=== PATIENT | female | born 1990 | race Caucasian/White ===

== ENCOUNTER 2020-10-20 17:55 | Emergency (ER) | payer OTHER ==
[~2020-10-20] VITALS: Ht 170.2 cm; Wt 127.0 kg
[~2020-10-20 17:55] MED LIST: ACETAMINOPHEN; AMITRIPTYLINE H25 M2 PO; IRON; LORTAB 5 MG/5001 TAB PO; PRISTIQ; ZYRTEC
[2020-10-20] MEDS ORDERED: IRON18 M1 PO (18:18)
[2020-10-20] MEDS ORDERED: MELATONIN5 MG SUBLING (18:18)
[2020-10-20] MEDS ORDERED: HYDROCHLOROTHIA50 MG PO (18:18)
[2020-10-20] MEDS ORDERED: PROTONIX40 M3 PO (18:18)
[2020-10-20] MEDS ORDERED: MEDROXYPROGESTE10 MG PO (18:19)
[2020-10-20 18:27] LABS: ABSOLUTE BASOPHILS 0.1 thou/uL (0.0-0.2); ABSOLUTE EOSINOPHILS 0.2 thou/uL (0.0-0.7); ABSOLUTE LYMPHOCYTES 3.7 thou/uL (0.8-5.3); ABSOLUTE MONOCYTES 1.1 thou/uL (0.0-1.2); ABSOLUTE NEUTROPHILS 7.2 thou/uL (1.6-8.1); EOSINOPHILS 1.4 %; HEMATOCRIT 44.4 % (37.0-47.0); HEMOGLOBIN 14.6 gm/dL (12.0-15.0); LYMPHOCYTES 30.2 %; MCH 28.9 pg (26.0-34.0); MCHC 32.9 g/dL (28.0-37.0); MCV 87.8 fL (80.0-100.0); MONOCYTES 8.6 %; MPV 7.6 fl. (7.2-11.1); NUCLEATED RBCS 0 /100WBC; PLATELET COUNT* 505 thou/uL (150-400); POLYS 58.8 %; RBC 5.05 mil/uL (4.20-5.00); RDW-CV 14.3 % (10.5-14.5); WBC 12.3 thou/uL (4.0-11.0)
[2020-10-20 18:28] LABS: URINE BILIRUBIN NEGATIVE (Negative); URINE BLOOD NEGATIVE (Negative); URINE CLARITY CLEAR; URINE COLOR YELLOW; URINE GLUCOSE-RANDOM NEGATIVE (Negative); URINE KETONES NEGATIVE (Negative); URINE LEUKOCYTES-REFLEX NEGATIVE (Negative); URINE NITRITE-REFLEX NEGATIVE (Negative); URINE PROTEIN NEGATIVE (Negative); URINE SPECIFIC GRAVITY >= 1.030 (1.005-1.030); URINE UROBILINOGEN 0.2 E.U./dl (0.2-1.0)
[2020-10-20 18:45] LABS: ALBUMIN 4.2 g/dL (3.4-5.0); CALCIUM 9.4 mg/dL (8.5-10.1); CREATININE 1.1 mg/dL (0.6-1.3); TOTAL BILIRUBIN 1.2 mg/dL (<0.1-1.0)
[2020-10-20 18:46] LABS: POTASSIUM 2.9 mmol/L (3.5-5.1)
[2020-10-20] MEDS ORDERED: APAP W/CODEINE1 TA2 PO (21:10)
[2020-10-20] MEDS ORDERED: QUETIAPINE FUM100 MG PO (21:10)
[2020-10-20] MEDS ORDERED: POTASSIUM20 PO (21:28)
[2020-10-20 21:33] VITALS: BP 150/92
== END 2020-10-20 21:35 | disposition home or self-care (01) ==
LOC: M.ERS 17:55
PROVIDERS: Physician Assistant
DX: F41.9 Anxiety disorder, unspecified (principal); R06.00 Dyspnea, unspecified; G43.909 Migraine, unspecified, not intractable, without status migrainosus; Z88.1 Allergy status to other antibiotic agents; Z88.0 Allergy status to penicillin; Z90.49 Acquired absence of other specified parts of digestive tract